=== PATIENT | male | born 1965 | race African-American/Black ===

== ENCOUNTER 2016-11-29 07:23 | Emergency (ER) | payer MEDICAID, OTHER ==
[~2016-11-29] VITALS: Ht 172.7 cm; Wt 100.0 kg
[~2016-11-29 07:23] MED LIST: CLIN1CAP5 PO; GABA300C3 PO; LISI20 PO; OXYC15TA PO; PROC90TA PO
[2016-11-29 07:25] VITALS: BP 217/107; PULSE 72; RESP 20; TEMP 97.5; O2SAT 97
[2016-11-29 07:30] VITALS: BP 206/94; PULSE 69; RESP 16; O2SAT 99
[2016-11-29] MEDS ORDERED: GABA300C5 PO (07:44)
[2016-11-29] MEDS ORDERED: OXYC30TA PO (07:44)
[2016-11-29] MEDS ORDERED: NIFE1TAB PO (08:12)
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
[2016-11-29] MEDS ORDERED: NIFEdipine 90 MG SUSTAINED RELEASE TAB PO ONE (08:15)
[2016-11-29 08:29] LABS: AUTOMATED NEUTROPHIL # 2.6 TH/MM3 (1.8-7.7); BASOPHIL # 0.1 TH/MM3 (0-0.2); BASOPHIL % 0.7 % (0.0-2.0); EOSINOPHIL # 0.2 TH/MM3 (0-0.4); EOSINOPHIL % 2.4 % (0.0-4.0); HEMATOCRIT 41.2 % (39.0-51.0); HEMO FLAGS DIFF FINAL; LYMPH % 52.8 % (9.0-44.0); LYMPHOCYTE # 3.9 TH/MM3 (1.0-4.8); MEAN CELL VOLUME 84.8 FL (80.0-100.0); MEAN CORPUSCULAR HEMOGLOBIN 27.8 PG (27.0-34.0); MEAN CORPUSCULAR HGB CONC 32.8 % (32.0-36.0); MONO % 9.3 % (0.0-8.0); NEUT % 34.8 % (16.0-70.0); PLATELET COUNT 327 TH/MM3 (150-450); RED BLOOD COUNT 4.86 MIL/MM3 (4.50-5.90); RED CELL DISTRIBUTION WIDTH 13.1 % (11.6-17.2); WHITE BLOOD COUNT 7.4 TH/MM3 (4.0-11.0)
[2016-11-29 08:53] LABS: ALKALINE PHOSPHATASE 60 U/L (45-117); TOTAL BILIRUBIN ADULT 0.4 MG/DL (0.2-1.0)
[2016-11-29 08:54] LABS: ALT (GPT) 37 U/L (12-78); ANION GAP 8 MEQ/L (5-15); AST (GOT) 37 U/L (15-37); BICARBONATE 24.8 MEQ/L (21.0-32.0); BLOOD UREA NITROGEN 12 MG/DL (7-18); CHLORIDE 108 MEQ/L (98-107); GLOMERULAR FILTRATION RATE 97 ML/MIN (>89); SODIUM (NA) 141 MEQ/L (136-145)
[2016-11-29 08:55] LABS: POTASSIUM 4.5 MEQ/L (3.5-5.1)
[2016-11-29 09:30] VITALS: BP 201/93; PULSE 72; RESP 16; O2SAT 98
[2016-11-29 10:05] VITALS: BP 197/88; PULSE 72; RESP 16; O2SAT 98
[2016-11-29 10:47] VITALS: BP 182/91; PULSE 65; RESP 16; O2SAT 98
--- NOTE | 2016-11-30 15:02 | EKG ---
Date Performed: 11/29/2016 Time Performed: 08:23:42 PTAGE: 51 years EKG: Sinus rhythm NONSPECIFIC T-WAVE ABNORMALITY BORDERLINE ECG Compared to prior tracing no significant change PREVIOUS TRACING : 04/17/2015 10.35 DOCTOR: Kelsey Chen Interpretating Date/Time 11/30/2016 14:54:49
== END 2016-11-29 10:48 | disposition home or self-care (01) ==
LOC: NEPC 07:23
DX: I10 Essential (primary) hypertension (principal); H61.23 Impacted cerumen, bilateral; R94.31 Abnormal electrocardiogram [ECG] [EKG]; Z72.0 Tobacco use; Z86.79 Personal history of other diseases of the circulatory system; Z87.19 Personal history of other diseases of the digestive system
CPT/HCPCS: 69210; 80053; 85025; 93005

== ENCOUNTER 2017-06-10 08:48 | Emergency (ER) | payer MEDICAID, OTHER ==
[~2017-06-10] VITALS: Ht 172.7 cm; Wt 101.0 kg
[~2017-06-10 08:48] MED LIST changes: -CLIN1CAP5 PO; -GABA300C3 PO; +GABA300C5 PO; -LISI20 PO; +NIFE1TAB PO; -OXYC15TA PO; +OXYC30TA PO; -PROC90TA PO
[2017-06-10 08:50] VITALS: BP 212/100; PULSE 65; RESP 16; TEMP 98.4; O2SAT 98
[2017-06-10] MEDS ORDERED: hydrALAZINE HCL 20 MG/ML VIAL IV PUSH ONE ×2 (09:15→10:45)
[2017-06-10 09:22] VITALS: BP 205/88; PULSE 70; RESP 16
--- NOTE | 2017-06-10 09:34 | RADRPT ---
EXAM DATE/TIME: 06/10/2017 09:19 [facility] COMPARISON: CT BRAIN W/O CONTRAST, March 09, 2015, 1:03. INDICATIONS : Right side cephalgia, hypertension. RADIATION DOSE: 56.35 CTDIvol (mGy) MEDICAL HISTORY : Hypertension. Cardiovascular disease SURGICAL HISTORY : Fusion, cervical. ENCOUNTER: Initial ACUITY: 2 days PAIN SCALE: 5/10 LOCATION: Right cranial TECHNIQUE: Multiple contiguous axial images were obtained of the head. Using automated exposure control and adj ustment of the mA and/or kV according to patient size, radiation dose was kept as low as reasonably a chievable to obtain optimal diagnostic quality images. DICOM format image data is available electro nically for review and comparison. FINDINGS: CEREBRUM: The ventricles are normal for age. No evidence of midline shift, mass lesion, hemorrhage or acute in farction. No extra-axial fluid collections are seen. POSTERIOR FOSSA: The cerebellum and brainstem are intact. The 4th ventricle is midline. The cerebellopontine angle i s unremarkable. EXTRACRANIAL: The visualized portion of the orbits is intact. Multiple areas of soft tissue thickening in the front al soft tissues bilaterally. SKULL: The calvaria is intact. No evidence of skull fracture. CONCLUSION: No acute intracranial disease. Scar Kenney MD on June 10, 2017 at 9:31 Board Certified Radiologist. This report was verified electronically.
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
[2017-06-10 09:48] LABS: AUTOMATED NEUTROPHIL # 3.5 TH/MM3 (1.8-7.7); BASOPHIL % 0.5 % (0.0-2.0); EOSINOPHIL # 0.2 TH/MM3 (0-0.4); EOSINOPHIL % 2.5 % (0.0-4.0); HEMO FLAGS DIFF FINAL; LYMPH % 42.2 % (9.0-44.0); LYMPHOCYTE # 3.4 TH/MM3 (1.0-4.8); MEAN CELL VOLUME 84.4 FL (80.0-100.0); MEAN CORPUSCULAR HEMOGLOBIN 27.5 PG (27.0-34.0); MEAN CORPUSCULAR HGB CONC 32.6 % (32.0-36.0); MONO % 11.2 % (0.0-8.0); NEUT % 43.6 % (16.0-70.0); PLATELET COUNT 302 TH/MM3 (150-450); RED BLOOD COUNT 4.62 MIL/MM3 (4.50-5.90); RED CELL DISTRIBUTION WIDTH 12.7 % (11.6-17.2)
[2017-06-10 10:00] VITALS: BP 184/100; PULSE 73; RESP 16; O2SAT 100
[2017-06-10 10:30] LABS: ANION GAP 6 MEQ/L (5-15); BICARBONATE 25.3 MEQ/L (21.0-32.0); BLOOD UREA NITROGEN 11 MG/DL (7-18); CHLORIDE 110 MEQ/L (98-107); GLOMERULAR FILTRATION RATE 100 ML/MIN (>89); POTASSIUM 3.9 MEQ/L (3.5-5.1); SODIUM (NA) 141 MEQ/L (136-145)
[2017-06-10 10:35] VITALS: BP 204/104; PULSE 72; RESP 14; O2SAT 100
[2017-06-10] MEDS ORDERED: NIFE1TAB PO (10:42)
[2017-06-10] MEDS ORDERED: cloNIDine HCL 0.1 MG TAB PO ONE (10:45)
[2017-06-10] MEDS ORDERED: NIFE20 PO (11:45)
[2017-06-10] MEDS ORDERED: AMLO10TA2 PO (11:46)
[2017-06-10 11:53] VITALS: BP 165/78
[2017-06-10 11:54] VITALS: BP 165/78
--- NOTE | 2017-06-10 13:58 | EKG ---
Date Performed: 06/10/2017 Time Performed: 09:47:07 PTAGE: 52 years EKG: Sinus rhythm NONSPECIFIC T-WAVE ABNORMALITY BORDERLINE ECG PREVIOUS TRACING : 11/29/2016 08.23 Compared to prior tracing no significant change DOCTOR: Buzz Longo Interpretating Date/Time 06/10/2017 13:58:21
== END 2017-06-10 12:03 | disposition home or self-care (01) ==
LOC: NEPD 08:48
DX: I10 Essential (primary) hypertension (principal); R51 Headache; R94.31 Abnormal electrocardiogram [ECG] [EKG]; F41.9 Anxiety disorder, unspecified; K21.9 Gastro-esophageal reflux disease without esophagitis; Z72.0 Tobacco use; Z79.899 Other long term (current) drug therapy
CPT/HCPCS: 70450; 80048; 83690; 83880; 84443; 84484; 85025; 93005; 96374; 96376; 99285; J0360